=== PATIENT | female | born 1990 | race Caucasian/White ===

== ENCOUNTER 2019-08-12 17:32 | Emergency (ER) | payer MEDICAID ==
[~2019-08-12] VITALS: Ht 175.3 cm; Wt 143.9 kg
[~2019-08-12 17:32] MED LIST: BUSP7.5T3 PO
--- NOTE | 2019-08-12 19:35 | NUR ---
PT HERE FOR RUQ AND RIGHT FLANK PAIN THAT COMES AND GOES X 3 WEEKS. PT DENIES N/V. PT UP TO BATHROOM FOR URINE SAMPLE.
[2019-08-12 19:36] LABS: BASOPHILS # (AUTO) 0.05 x10^3/uL (0-0.1); BASOPHILS % (AUTO) 1 % (0-1); EOSINOPHILS # (AUTO) 0.31 x10^3/uL (0-0.4); EOSINOPHILS % (AUTO) 4 % (1-7); LYMPHOCYTES # (AUTO) 2.72 x10^3/uL (1-3.4); LYMPHOCYTES % (AUTO) 31 % (22-44); MD NO; MEAN CORPUSCULAR HEMOGLOBIN 30.7 pg (27.0-34.8); MEAN CORPUSCULAR HGB CONC 33.6 g/dL (32.4-35.8); MEAN CORPUSCULAR VOLUME 91.4 fL (80-100); MEAN PLATELET VOLUME 7.7 fL (7.4-10.4); MONOCYTES # (AUTO) 0.77 x10^3/uL (0.2-0.8); MONOCYTES % (AUTO) 9 % (2-9); NEUTROPHILS # (AUTO) 4.81 x10^3/uL (1.8-6.8); NEUTROPHILS % (AUTO) 56 % (42-75); PLATELET COUNT 323 x10^3/uL (130-400); RED BLOOD COUNT 4.63 x10^6/uL (3.82-5.3); RED CELL DISTRIBUTION WIDTH 14.2 % (9.6-15.2)
[2019-08-12 19:47] LABS: ALANINE AMINOTRANSFERASE 101 U/L (12-78); ALBUMIN 3.7 g/dL (3.4-5.0); ANION GAP 6 mmol/L (5-15); CALCIUM 8.9 mg/dL (8.5-10.1); CHLORIDE 111 mmol/L (98-107); CREATININE 0.79 mg/dL (0.55-1.02)
[2019-08-12 19:49] LABS: ALKALINE PHOSPHATASE 73 U/L (45-117); BILIRUBIN,TOTAL 0.3 mg/dL (0.2-1.0); TOTAL PROTEIN 8.2 g/dL (6.4-8.2)
[2019-08-12] MEDS ORDERED: HYDROcodone/APAP 5/325 TABLET PO ONE (20:00)
[2019-08-12] MEDS ORDERED: HYDROcodone/APAP 5/325 TABLET ONE (20:23)
--- NOTE | 2019-08-12 20:28 | NUR ---
CT PENDING HCG .
--- NOTE | 2019-08-12 20:44 | NUR ---
UA SENT TO LAB. PT MEDICATED FOR PAIN. CALL LIGHT IN REACH
[2019-08-12 20:45] VITALS: BP 161/98
--- NOTE | 2019-08-12 21:03 | NUR ---
PT TO CT
== END 2019-08-12 22:10 | disposition home or self-care (01) ==
LOC: ED 21:18
DX: R10.11 Right upper quadrant pain (principal); Z90.49 Acquired absence of other specified parts of digestive tract
CPT/HCPCS: 36415; 74176; 80053; 81025; 83690; 85025; 99284

== ENCOUNTER 2020-05-25 17:25 | Emergency (ER) | payer MEDICAID ==
[~2020-05-25] VITALS: Ht 175.3 cm; Wt 154.6 kg
[~2020-05-25 17:25] MED LIST changes: -BUSP7.5T3 PO; +BUSP7.5T5 PO
--- NOTE | 2020-05-25 18:57 | NUR ---
REPORT GIVEN TO ROBE
[2020-05-25] MEDS ORDERED: METHOCARBAMOL 750 MG TABLET PO ONE (19:00)
[2020-05-25] MEDS ORDERED: METHOCARBAMOL 750 MG TABLET ONE (19:00)
[2020-05-25 19:02] LABS: BASOPHILS % (AUTO) 2 % (0-1); EOSINOPHILS # (AUTO) 0.41 x10^3/uL (0-0.4); EOSINOPHILS % (AUTO) 3 % (1-7); LYMPHOCYTES % (AUTO) 26 % (22-44); MD NO; MEAN CORPUSCULAR HEMOGLOBIN 30.9 pg (27.0-34.8); MEAN CORPUSCULAR HGB CONC 33.6 g/dL (32.4-35.8); MEAN CORPUSCULAR VOLUME 91.8 fL (80-100); MEAN PLATELET VOLUME 7.8 fL (7.4-10.4); MONOCYTES # (AUTO) 0.89 x10^3/uL (0.2-0.8); MONOCYTES % (AUTO) 7 % (2-9); NEUTROPHILS # (AUTO) 8.32 x10^3/uL (1.8-6.8); NEUTROPHILS % (AUTO) 63 % (42-75); PLATELET COUNT 347 x10^3/uL (130-400); RED BLOOD COUNT 4.89 x10^6/uL (3.82-5.3); RED CELL DISTRIBUTION WIDTH 13.6 % (9.6-15.2)
[2020-05-25 19:03] VITALS: BP 148/101
--- NOTE | 2020-05-25 19:05 | NUR ---
PT MEDICATED PER MAR. PLACED ON MONITORING, CALL LIGHT WITHIN REACH, ALL SAFETY MEASURES IN PLACE.
[2020-05-25 19:12] LABS: ALANINE AMINOTRANSFERASE 207 U/L (12-78); ALBUMIN 3.9 g/dL (3.4-5.0); ANION GAP 9 mmol/L (5-15); CALCIUM 9.3 mg/dL (8.5-10.1); CHLORIDE 108 mmol/L (98-107); CREATININE 0.76 mg/dL (0.55-1.02)
[2020-05-25 19:16] LABS: ALKALINE PHOSPHATASE 88 U/L (45-117); BILIRUBIN,TOTAL 0.3 mg/dL (0.2-1.0); TOTAL PROTEIN 8.5 g/dL (6.4-8.2)
[2020-05-25 19:38] LABS: MICROSCOPIC AUTO
--- NOTE | 2020-05-25 19:44 | NUR ---
EMERGENCY CONTACT [facility] [phone]
== END 2020-05-25 20:26 | disposition home or self-care (01) ==
LOC: ED 20:00
DX: S29.012A Strain of muscle and tendon of back wall of thorax, initial encounter (principal); R10.9 Unspecified abdominal pain; Z90.49 Acquired absence of other specified parts of digestive tract; X58.XXXA Exposure to other specified factors, initial encounter; Y93.89 Activity, other specified; Y92.89 Other specified places as the place of occurrence of the external cause; Y99.8 Other external cause status
CPT/HCPCS: 36415; 80053; 81001; 83690; 84703; 85025; 87086; 99283

== ENCOUNTER 2020-06-02 21:01 | Emergency (ER) | payer MEDICAID ==
[~2020-06-02] VITALS: Ht 175.3 cm; Wt 154.5 kg
--- NOTE | 2020-06-02 21:49 | NUR ---
THIS IS A 29Y F THAT COMES IN FOR ABD PAIN. PT REPORTS BEING SEEN HERE LAST WEEK FOR THE SAME AND PAIN HAS WORSENED/ SPREAD TO L SIDE OCCASIONALLY. PT WAS ALSO SEEN AT [facility]RGENT [facility]ARE AND TOLD HER BP WAS VERY HIGH AND NEEDED TO GET TX (154/89)
--- NOTE | 2020-06-02 22:27 | NUR ---
PT UP TO RESTROOM FOR URINE SAMPLE, EDUCATED ON CLEAN CATCH METHOD
--- NOTE | 2020-06-02 22:49 | NUR ---
URINE SENT TO LAB
--- NOTE | 2020-06-02 23:08 | NUR ---
LAB CALLED TO FOLLOW UP ON DELAY FOR LAB DRAW
[2020-06-02 23:09] VITALS: BP 133/84
--- NOTE | 2020-06-02 23:38 | NUR ---
LAB NOW AT BEDSIDE FOR DRAW
[2020-06-02 23:46] LABS: MICROSCOPIC INDICATED
[2020-06-02 23:52] LABS: BASOPHILS # (AUTO) 0.06 x10^3/uL (0-0.1); BASOPHILS % (AUTO) 1 % (0-1); EOSINOPHILS # (AUTO) 0.43 x10^3/uL (0-0.4); EOSINOPHILS % (AUTO) 4 % (1-7); LYMPHOCYTES # (AUTO) 3.98 x10^3/uL (1-3.4); LYMPHOCYTES % (AUTO) 33 % (22-44); MD NO; MEAN CORPUSCULAR HEMOGLOBIN 30.5 pg (27.0-34.8); MEAN CORPUSCULAR HGB CONC 33.3 g/dL (32.4-35.8); MEAN CORPUSCULAR VOLUME 91.7 fL (80-100); MEAN PLATELET VOLUME 7.8 fL (7.4-10.4); MONOCYTES % (AUTO) 8 % (2-9); NEUTROPHILS # (AUTO) 6.79 x10^3/uL (1.8-6.8); NEUTROPHILS % (AUTO) 55 % (42-75); PLATELET COUNT 320 x10^3/uL (130-400); RED BLOOD COUNT 4.85 x10^6/uL (3.82-5.3); RED CELL DISTRIBUTION WIDTH 13.2 % (9.6-15.2)
[2020-06-03 00:01] LABS: ALBUMIN 3.8 g/dL (3.4-5.0); ANION GAP 7 mmol/L (5-15); CALCIUM 9.2 mg/dL (8.5-10.1); CHLORIDE 111 mmol/L (98-107)
[2020-06-03 00:05] LABS: ALANINE AMINOTRANSFERASE 196 U/L (12-78); ALKALINE PHOSPHATASE 86 U/L (45-117); BILIRUBIN,TOTAL 0.3 mg/dL (0.2-1.0); CREATININE 0.65 mg/dL (0.55-1.02); TOTAL PROTEIN 8.1 g/dL (6.4-8.2)
--- NOTE | 2020-06-03 01:43 | NUR ---
PT REFUSING VITALS, HAS GOTTEN DRESSED AND IS ASKING WHEN SHE CAN LEAVE. PT EDUCATED THAT WE ARE WAITING ON US RESULTS
[2020-06-03] MEDS ORDERED: CEFDINIR 300 MG CAPSULE PO ONE (02:30)
[2020-06-03] MEDS ORDERED: CEFDINIR 300 MG CAPSULE ONE (02:40)
== END 2020-06-03 03:00 | disposition home or self-care (01) ==
LOC: ED 23:12
DX: N39.0 Urinary tract infection, site not specified (principal); N10 Acute pyelonephritis; R10.9 Unspecified abdominal pain; M45.9 Ankylosing spondylitis of unspecified sites in spine; F17.210 Nicotine dependence, cigarettes, uncomplicated; Z90.49 Acquired absence of other specified parts of digestive tract
CPT/HCPCS: 36415; 74176; 76705; 80053; 81001; 83690; 85025; 87086; 99285